=== PATIENT | male | born 1975 | race Caucasian/White ===

== ENCOUNTER 2020-04-29 08:05 | Observation (INO) | payer OTHER, SELFPAY ==
--- NOTE | ~2020-04-29 | MR_ITS ---
EXAMINATION: MR MRCP wo/w con/w 3D wo ind DATE: 04/30/2020 08:27 INDICATION: Jaundice. Anorexia. TECHNIQUE: Magnetic resonance imaging (MRI) of the abdomen was performed without and with 19 mL Multi vince intravenous contrast. Sequences included coronal T2-weighted SS-FSE, coronal T2-weighted FS SS- FSE, coronal T2-weighted FS FIESTA, axial T2-weighted FS FIESTA, axial T2-weighted FIESTA, sagittal T 2-weighted SS-FSE, axial T1-weighted dual-echo FSPGR, axial T2-weighted SS-FSE, axial T1-weighted LAV A, axial T2-weighted STIR FSE. Thick-slab T2-weighted FRFSE-XL images were obtained for magnetic reso nance cholangiopancreatography (MRCP). Rotating maximum intensity projection 3-D reconstructions of t he volumetric data were created by the technologist. Postcontrast sequences included a time course of axial T1-weighted LAVA. COMPARISON: CT dated 04/29/2020 FINDINGS: ABDOMEN MRI: Heart size is normal. No pericardial or pleural effusion. 3 mm T2 hyperintense nonenhanc ing cysts in the right hepatic lobe. No intra or extrahepatic biliary ductal dilation. Gallbladder, s pleen, pancreas, bilateral adrenal glands and kidneys are normal. There are several scattered colonic diverticula without adjacent inflammatory change to suggest diverticulitis. Small bowel and appendix are normal. Bladder is normal. No free intraperitoneal fluid. No pathologically enlarged abdominal o r pelvic lymphadenopathy. Bone marrow signal is normal throughout. ABDOMEN MRCP: Normal common bile duct which measures up to 3 mm in maximal diameter the mid duct tapering distally with no evident filling defects or mucosal irregularities. IMPRESSION: 1. Unremarkable MRI/MRCP with no cholelithiasis and no intra or extra hepatic biliary ductal dilation . Reviewed, dictated and finalized at location A. IMPRESSION: 1. Unremarkable MRI/MRCP with no cholelithiasis and no intra or extra hepatic b iliary ductal dilation.
--- NOTE | ~2020-04-29 | CT_ITS ---
EXAMINATION: CT abdomen pelvis w con DATE: 04/29/2020 08:48 INDICATION: Abdomen pain. Jaundice. TECHNIQUE: Computed tomography (CT) of the abdomen and pelvis was performed with 100 cc Omnipaque 350 intravenous contrast. The dose-length product was 315.31 mGy-cm. Automated exposure control and iter ative reconstruction technique were employed. COMPARISON: None. FINDINGS: Lung bases are unremarkable. Heart size normal. No significant pleural or pericardial effus ion. No significant vascular abnormality. No lymphadenopathy. The liver, spleen, pancreas, adrenal glands and kidneys are unremarkable. Gallbladder is contracted. Nonobstructive bowel gas pattern. Normal appendix. No abnormal pelvic masses or fluid collections. No free air or free fluid. IMPRESSION: 1. No acute abdominal abnormality. No findings to account for patient's symptoms. Reviewed, dictated and finalized at location B. IMPRESSION: 1. No acute abdominal abnormality. No findings to account for patient's symptom s.
[2020-04-29 08:09] VITALS: BP 136/103; PULSE 106; RESP 18; TEMP 36.8; O2SAT 99
--- NOTE | 2020-04-29 08:17 | ED.ABDPAIN ---
HPI - Abdominal Pain General Chief Complaint: Abdominal Pain Stated Complaint: abd pain/jaundice Time Seen by Provider: 04/29/20 08:17 History of Present Illness HPI narrative: Not feeling well for the past 9 days. Nausea, loss of appetite, abnormal bowel movements. Now feeling weak and and dehydrated. Noted to be jaundiced during triage. He reports that he takes tylenol PM sometimes at night, but no excessive use. Related Data Home Medications Medication Instructions Recorded Confirmed diphenhydramine-acetaminophen 2 tablet PO HS PRN 04/29/20 04/29/20 [Tylenol PM Extra Strength] meloxicam 7.5 mg PO DAILY PRN 04/29/20 04/29/20 Allergies Allergy/AdvReac Type Severity Reaction Status Date / Time No Known Allergies Allergy Verified 04/29/20 08:14 Review of Systems Review of Systems: All systems reviewed & are unremarkable except as noted in HPI and below Constitutional: Constitutional: Denies fever(s) Cardiovascular: Cardiovascular: Denies chest pain Gastrointestinal: Gastrointestinal: Denies vomiting Genitourinary: Genitourinary: Denies dysuria Neurologic: Denies focal weakness Endocrine: Endocrine: Denies polydipsia [facility] Family History Family History Father Pancreatic cancer Social History Social History Tobacco type: smokeless tobacco Smokeless tobacco user: chewing tobacco Alcohol intake: former Substance use type: other Other substance usage details: smokeless tobacco Spiritual care concerns: No Exam Const: General: no acute distress and alert Orientation/consciousness: patient oriented x3 HENMT: Head: normal to inspection Eyes: Conjunctivae: conjunctival abnormality bilateral conjunctival icterus Neck: Neck: normal visual inspection and no lymphadenopathy Chest: Chest palpation & inspection: no tenderness Resp: Effort & Inspection: normal respiratory effort Auscultation: clear to auscultation bilaterally, no rales, no rhonchi and no wheezes Cardio: Jugular venous distension: no JVD Rate: regular rate Rhythm: regular rhythm Heart sounds: no murmurs GI: Inspection: non-distended GI Palp: Yes Soft to palpation and No Tenderness to palpation present (GI) Skin: General skin exam: jaundice Neuro: General: patient oriented x3 and moves all extremities Speech: normal speech Extrem: General: no edema Psych: Appearance: well kempt Affect: normal affect Course Vital Signs Vital signs: Vital Signs Temperature 36.8 C 04/29/20 08:09 Pulse Rate 106 H 04/29/20 08:09 Respiratory Rate 18 04/29/20 08:09 Blood Pressure 136/103 H 04/29/20 08:09 Pulse Oximetry 99 04/29/20 08:09 Temperature 36.5 C 04/29/20 14:00 Pulse Rate 74 04/29/20 14:00 Respiratory Rate 16 04/29/20 14:00 Blood Pressure 126/69 04/29/20 14:00 Pulse Oximetry 100 04/29/20 14:00 MDM - Abdominal Pain MDM Narrative Medical decision making narrative: Patient discussed with GI doctor. They will see as a consult. Medical Records Attestation: I reviewed the patient's medical records. Lab Data Attestation: I reviewed the patient's lab results. Result diagrams: 04/29/20 08:17 04/29/20 08:35 Labs: Lab Results 04/29/20 04/29/20 04/29/20 Range/Units 08:16 08:16 08:17 WBC 7.9 (4.5-10.0) K/mm3 RBC 5.60 (4.6-6.20) M/mm3 Hgb 16.8 (14.0-18.0) g/dL Hct 49.6 (42.0-52.0) % MCV 88.6 (80-100) fl MCH 30.0 (26-34) pg MCHC 33.9 (32-36) g/dl RDW 13.6 (11.5-14.5) % Plt Count 268 (150-375) k/mm3 MPV 10.0 (7.4-10.4) fl Immature Gran % (Auto) 1.0 H (0-0.5) % Neut % (Auto) 59.4 (45.5-73.1) % Lymph % (Auto) 25.3 (18.3-44.2) % Tom[place]kins % (Auto) 8.8 H (2.6-8.5) % Eos % (Auto) 4.7 H (0-4.4) % Baso % (Auto) 0.8 (0.2-1.2) % Lymph # (Auto) 1.99 (0.9-3.2) K/mm3 Mon
[2020-04-29 08:34] LABS: Basophils Absolute Auto 0.1 K/mm3 (0.0-0.1); Basophils Percent Auto 0.8 % (0.2-1.2); Eosinophils Absolute Auto 0.4 K/mm3 (0-0.3); Eosinophils Percent Auto 4.7 % (0-4.4); Hematocrit 49.6 % (42.0-52.0); Hemoglobin 16.8 g/dL (14.0-18.0); Immature Granulocyte Absolute 0.08 K/mm3 (0.00-0.031); Lymphocytes Absolute Auto 1.99 K/mm3 (0.9-3.2); Lymphocytes Percent Auto 25.3 % (18.3-44.2); Mean Corpuscular HGB Conc 33.9 g/dl (32-36); Mean Corpuscular Volume 88.6 fl (80-100); Monocytes Absolute Auto 0.7 K/mm3 (0.1-0.6); Monocytes Percent Auto 8.8 % (2.6-8.5); Neutrophils Absolute Auto 4.7 K/mm3 (1.3-6.7); Neutrophils Percent Auto 59.4 % (45.5-73.1); Platelet Count Result 268 k/mm3 (150-375); Red Cell Distribution Width 13.6 % (11.5-14.5); White Blood Count 7.9 K/mm3 (4.5-10.0)
[2020-04-29 08:36] LABS: Estimated CRCL calculation 79 ml/min; Estimated Glomerular Filt Rate > 60
[2020-04-29 08:53] LABS: Albumin Level 4.9 g/dL (3.5-5.1); Alkaline Phosphatase 536 U/L (38-126); Aspartate Amino Transferase 368 U/L (17-59); Bilirubin,Total 13.5 mg/dL (0.2-1.3); Blood Urea Nitrogen 15 mg/dL (9-20); Carbon Dioxide 26 mmol/L (22-30); Chloride 98 mmol/L (98-107); Estimated CRCL calculation 79 ml/min; Estimated Glomerular Filt Rate > 60; Glucose 106 mg/dL (75-110); Lipase 103 U/L (23-300); Potassium 3.6 mmol/L (3.4-5.0); Sodium 137 mmol/L (137-145)
[2020-04-29] MEDS: SODIUM CHLORIDE 0.9% IV 1,000 ML 999 ML IV CONT (08:55)
[2020-04-29 09:01] LABS: Alanine Aminotransferase 985 U/L (4-50)
[2020-04-29 09:02] LABS: Albumin Level 4.8 g/dL (3.5-5.1); Alkaline Phosphatase 533 U/L (38-126); Aspartate Amino Transferase 368 U/L (17-59); Bilirubin,Total 13.6 mg/dL (0.2-1.3)
[2020-04-29 09:03] LABS: Alanine Aminotransferase 985 U/L (4-50)
[2020-04-29 09:37] LABS: Appearance Urine Clear (Clear); Bilirubin Urine 3+ (Negative); Blood Urine Negative (Negative); Color Urine Yellow (Yellow); Glucose Urine UA Negative (Negative); Ketones Urine 1+ mg/dL (Negative); Leukocyte Esterase Ur Negative LEU/UL (Negative); Nitrate Urine Negative (Negative); Protein Urine Trace mg/dL (Negative); Urobilinogen Urine 0.2 mg/dL (<2.0)
[2020-04-29 09:52] LABS: Add Urine Microscopic? YES; RBC Urine 0-2 /hpf (0-2); WBC Urine 0-3 /hpf
[2020-04-29 09:52] LABS: INR 0.9; Prothrombin Time 11.5 Seconds (11.1-14.7)
[2020-04-29 09:53] LABS: Bacteria Urine Trace /hpf; Mucus Urine Rare /lpf
[2020-04-29 11:23] LABS: Hepatitis B Surface Antigen Negative (Negative)
[2020-04-29 11:26] VITALS: BP 113/72; PULSE 75; RESP 16; O2SAT 98
[2020-04-29 11:33] LABS: HAV RESULT Negative (Negative); Hepatitis B Core IgM Result Negative (Negative)
[2020-04-29 11:41] LABS: Hepatitis C Virus Antibody Negative (Negative)
[2020-04-29 13:32] VITALS: BP 111/77; PULSE 87; RESP 16; TEMP 36.6; O2SAT 97
[2020-04-29 13:49] LABS: Acetaminophen < 10 ug/mL (10-30)
--- NOTE | 2020-04-29 13:52 | PC.NURSE ---
This patient, Samm Pan, was admitted to Medical Room 341-01. Patient/family oriented to hospital policies and general routines including ID bracelet, bed and alarms, visiting hours, pain management, procedures, bathroom and other care routines, personal items, smoking policy, room service/diet, and visiting hours. Valuables list has been completed. Information on how to activate the Rapid Response Team has been discussed. Patient/Family are encouraged to report perceived risks to care and to ask questions if they do not understand what they are told or what they should do.
[2020-04-29 14:00] VITALS: BP 126/69; PULSE 74; RESP 16; TEMP 36.5; O2SAT 100
[2020-04-29 14:10] VITALS: BMI 23.8
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
[2020-04-29] MEDS: LACTATED RINGERS 1,000 ML 125 ML IV CONT (14:37)
[2020-04-29] MEDS: NICOTINE (*PBKC) 7 MG PATCH 1 PATCH TRANSDERM (15:49)
--- NOTE | 2020-04-29 17:34 | WPDGICN ---
Assessment and Plan Assessment and plan (1) Acute hepatitis: Code(s): B17.9 - Acute viral hepatitis, unspecified Status: Acute Assessment and Plan: 10 days of vague symptoms but now has jaundice with hepatitis. HAV, HBV negative. I still wonder if could be viral- will order serology for EBV, CMV, HIV, herpes, also get HBV DNA, davida disease and autoimmune hepatitis he has not been using more than 1g acetaminophen daily however given clinical presentation I will start empirically iv mucomyst monitor liver enzymes denies etoh use synthetic function is normal (2) Jaundice: Code(s): R17 - Unspecified jaundice Status: Acute Assessment and Plan: will get also MRCP to assess pancreas and biliary system (3) Anorexia: Code(s): R63.0 - Anorexia Status: Acute Assessment and Plan: he may need egd in 1-2 days based on clinical course GI Consult Note Consult date/time: 04/29/20 17:34 Reason for consult: jaundice, malaise HPI: Samm Pan is a 44 year old male who is healthy and history of shoulder surgery about a month ago for which took narcotics for only a week discontinued about 3 weeks ago, he has been using 2 tylenol PM for sleeping since then but no other forms of acetaminophen, otherwise denies etoh use, history of liver disease. About 10 days started feeling lousy with lack of appetite, he was just not being himself and more tired than usual, also dyspepsia with reflux symptoms, even took tums and antacids. Noted light stools and just recently eyes turned yellow therefore he came to ER. CT scan abdomen was unremarkable. Had bilirubin 13, ast 360 and alt 900, AP 500, inr 0.9, lipase 100. Hepatitis panel negative. He had chills but no fever, denies sick contacts, no recent trips. Never had scopes. Father had pancreatic cancer. Review of Systems Constitutional: Constitutional: Reports chills, Reports fatigue, Denies headache(s), Reports lethargy and Reports weakness Eyes: Eyes: Denies blurry vision ENT: Reports Normal hearing present, Denies headache(s) and Denies neck pain Cardiovascular: Cardiovascular: Denies chest pain and Denies dyspnea Respiratory: Respiratory: Denies dyspnea Gastrointestinal: Gastrointestinal: Reports heartburn Genitourinary: Genitourinary: Denies dysuria Musculoskeletal: Musculoskeletal: Denies neck pain Integumentary/Breasts: Skin/Breast: Denies dry skin Neurologic: Reports Normal hearing present, Denies headache(s) and Denies weakness Psychiatric: Psychiatric: Denies anxiety Endocrine: Endocrine: Denies change in body appearance Hematologic/Lymphatic: Hematologic/Lymphatic: Denies easy bleeding Allergic/Immunologic: Allergic/Immunologic: Denies urticaria PMFSH Family History Family History Father Pancreatic cancer Social History Social History Tobacco type: smokeless tobacco Smokeless tobacco user: chewing tobacco Alcohol intake: former Substance use type: other Other substance usage details: smokeless tobacco Spiritual care concerns: No Meds Home Medications and Allergies Home Medications Medication Instructions Recorded Confirmed Type diphenhydramine-acetaminophen 2 tablet PO HS PRN 04/29/20 04/29/20 History [Tylenol PM Extra Strength] meloxicam 7.5 mg PO DAILY PRN 04/29/20 04/29/20 History Allergies Allergy/AdvReac Type Severity Reaction Status Date / Time No Known Allergies Allergy Verified 04/29/20 08:14 Vital Signs Vital Signs - 24 hr 04/29/20 08:09 04/29/20 11:26 04/29/20 13:32 Temperature 98.3 F 98 F Pulse Rate 106 H 75 87 Respiratory Rate 18 16 16 Blood Pressure 136/103 H 113/72 111/77 Pulse Oximetry 99 98 97 04/29/20 14:00 Temperature 97.7 F Pulse Rate 74 Respiratory Rate 16 Blood Pressure 126/69 Pulse Oximetry 100 Exam Const: General: co
[2020-04-29 20:00] VITALS: PULSE 94; RESP 14; O2SAT 100
[2020-04-29 20:01] VITALS: BP 130/77; PULSE 94; RESP 14; TEMP 36.9; O2SAT 100
[2020-04-30 06:00] VITALS: BP 126/71; PULSE 67; RESP 18; TEMP 36.4; O2SAT 100
[2020-04-30 06:05] LABS: Basophils Absolute Auto 0.1 K/mm3 (0.0-0.1); Basophils Percent Auto 0.5 % (0.2-1.2); Eosinophils Absolute Auto 0.2 K/mm3 (0-0.3); Eosinophils Percent Auto 1.4 % (0-4.4); Hematocrit 42.9 % (42.0-52.0); Hemoglobin 15.1 g/dL (14.0-18.0); Immature Granulocyte Absolute 0.12 K/mm3 (0.00-0.031); Lymphocytes Absolute Auto 1.49 K/mm3 (0.9-3.2); Lymphocytes Percent Auto 12.8 % (18.3-44.2); Mean Corpuscular HGB Conc 35.2 g/dl (32-36); Mean Corpuscular Hemoglobin 29.7 pg (26-34); Mean Corpuscular Volume 84.3 fl (80-100); Mean Platelet Volume 9.5 fl (7.4-10.4); Monocytes Percent Auto 8.2 % (2.6-8.5); Neutrophils Absolute Auto 8.9 K/mm3 (1.3-6.7); Neutrophils Percent Auto 76.1 % (45.5-73.1); Platelet Count Result 248 k/mm3 (150-375); Red Blood Count 5.09 M/mm3 (4.6-6.20); Red Cell Distribution Width 12.9 % (11.5-14.5); White Blood Count 11.6 K/mm3 (4.5-10.0)
[2020-04-30 06:10] LABS: INR 1.1; Prothrombin Time 13.4 Seconds (11.1-14.7)
[2020-04-30 06:11] LABS: Partial Thromboplastin Time 28.9 SECONDS (22.3-36.8)
--- NOTE | 2020-04-30 06:12 | PC.NURSE ---
intake before mid noc
[2020-04-30 06:26] LABS: Alanine Aminotransferase 721 U/L (4-50); Albumin Level 4.5 g/dL (3.5-5.1); Alkaline Phosphatase 480 U/L (38-126); Aspartate Amino Transferase 181 U/L (17-59); Bilirubin,Total 12.8 mg/dL (0.2-1.3); Blood Urea Nitrogen 10 mg/dL (9-20); Calcium 9.8 mg/dL (8.4-10.2); Carbon Dioxide 21 mmol/L (22-30); Chloride 103 mmol/L (98-107); Creatine Kinase 39 U/L (55-170); Estimated CRCL calculation 111 ml/min; Estimated Glomerular Filt Rate > 60; Glucose 141 mg/dL (75-110); Phosphorus 2.6 mg/dL (2.5-4.5); Potassium 3.5 mmol/L (3.4-5.0); Sodium 137 mmol/L (137-145)
[2020-04-30 07:05] LABS: HIV 1/2 Ab P24 Ag Result Negative (Negative)
[2020-04-30 13:31] LABS: Immunoglobulin A 138 mg/dL (70-400); Immunoglobulin G 603 mg/dL (700-1600); Immunoglobulin M 123 mg/dL (40-230)
[2020-04-30 14:00] VITALS: BP 127/66; PULSE 99; RESP 16; TEMP 36.5; O2SAT 100
--- NOTE | 2020-04-30 15:37 | PM.IMPN ---
Progress Note: A&P Assessment and Plan (1) Acute hepatitis: Code(s): B17.9 - Acute viral hepatitis, unspecified Status: Acute Assessment and Plan: Etiology not clear at this time, with negative viral hepatitis panel. His synthetic function is normal with normal CBC. He has been taking no more than 1 gram of Tylenol in the form of Tylenol p.m. and acetaminophen level is undetectable. Multiple labs have been ordered for evaluation to rule out other viral etiologies and autoimmune hepatitis. Supportive care for now with IV fluid rehydration and antiemetics as needed. MRCP today negative (2) Jaundice: Code(s): R17 - Unspecified jaundice Status: Acute Assessment and Plan: CT of the abdomen and pelvis is unremarkable, but given his father's history of pancreatitis in his 50s, MRCP done today and was negative (3) Anorexia: Code(s): R63.0 - Anorexia Status: Acute Assessment and Plan: Likely due to acute hepatitis, but he also complains of GERD symptoms. Hold meloxicam as that could be causing some GI upset. Subjective Date/time seen: 04/30/20 15:37 Interval history: Date of visit 04/30. 44-year-old admitted with acute hepatitis anorexia. Feels slightly better this a.m. after hydration was able to eat fairly well this morning. No pain and has had no vomiting at home. Exam Narrative: Exam Narrative: Blood pressure 126/56 pulse is 94 saturating 100% room air afebrile General: Well-developed male, mildly ill in appearance, HEENT: Pupils reactive. Conjunctiva are icteric bilaterally. Neck: Supple. Respiratory: Lungs are clear to auscultation bilaterally. Cardiovascular: Regular rate and rhythm with S1-S2. Gastrointestinal: Abdomen is soft, nontender, and nondistended with positive bowel sounds. No organomegaly. Skin: Warm, dry, and jaundiced. Extremities: No edema. Radial and pedal pulses intact. Neurological: Alert. Cranial nerves 2-12 are grossly intact. No gross focal deficits to casual conversation. Psychiatric: Pleasant and cooperative with normal mood and affect. Judgment and insight intact. Objective Data Vital Signs Vital Signs: Vital Signs - 24 hr 04/29/20 20:00 04/29/20 20:01 04/30/20 06:00 Temperature 36.9 C 36.4 C Pulse Rate 94 94 67 Respiratory Rate 14 14 18 Blood Pressure 130/77 126/71 Pulse Oximetry 100 100 100 04/30/20 14:00 Temperature 36.5 C Pulse Rate 99 Respiratory Rate 16 Blood Pressure 127/66 Pulse Oximetry 100 Intake/Output Intake/Output: Intake & Output 04/27/20 04/28/20 04/29/20 04/30/20 23:59 23:59 23:59 23:59 Intake Total 2095.75 917.25 Output Total 1125 Balance 2095.75 -207.75 Meds/Results Medications: Active Medications Generic Name Dose Route Start Last Admin Trade Name Freq PRN Reason Stop Dose Admin Lactated Ringer's 1,000 mls @ 100 mls/hr 04/29/20 12:55 04/29/20 18:23 Lr - Lactated Ringers Iv IV CONT 0 mls/hr .Q10H PURNIMA Infusion Nicotine 1 patch 04/29/20 14:49 04/30/20 08:52 Nicoderm Cq 7 Mg TRANSDERM Not Given [facility] Radiology Results: ITS Impressions Abdomen/Pelvis CT 04/29/20 08:56 IMPRESSION: 1. No acute abdominal abnormality. No findings to account for patient's symptoms. MRCP 04/30/20 08:49 IMPRESSION: 1. Unremarkable MRI/MRCP with no cholelithiasis and no intra or extra hepatic biliary ductal dilation. Labs Labs: Laboratory Results - last 24 hr 04/30/20 04/30/20 04/30/20 05:43 05:45 05:45 WBC 11.6 H RBC 5.09 Hgb 15.1 Hct 42.9 MCV 84.3 MCH 29.7 MCHC 35.2 RDW 12.9 Plt Count 248 MPV 9.5 Immature Gran % (Auto) 1.0 H Neut % (Auto) 76.1 H Lymph % (Auto) 12.8 L Foard % (Auto) 8.2 Eos % (Auto) 1.4 Baso % (Auto)
--- NOTE | 2020-04-30 16:54 | WPDGIPROGNO ---
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 Denies use etoh, no antibiotics, no herbals. (2) Jaundice: Code(s): R17 - Unspecified jaundice Status: Acute Assessment and Plan: monitor labs (3) Anorexia: Code(s): R63.0 - Anorexia Status: Acute Subjective Date/time seen: 04/30/20 16:54 Interval history: no new events, he tolerating diet, no abdominal pain. Some loose stools today after getting iv acetadote Review of Systems Review of Systems: All systems reviewed & are unremarkable except as noted in HPI and below Exam Const: General: comfortable and no acute distress HENMT: General nose exam: Normal nares present Eyes: Sclera: scleral abnormality (icteric) Neck: Neck: no JVD Resp: Auscultation: clear to auscultation bilaterally Cardio: Rate: regular rate Rhythm: regular rhythm GI: Inspection: non-distended GI Palp: Yes Soft to palpation Auscultation: normal bowel sounds Skin: General skin exam: jaundice Neuro: General: gait normal Speech: normal speech Extrem: General: normal to inspection Psych: Mental Status: mental status grossly normal Objective Data Vital Signs Vital Signs: Vital Signs - 24 hr 04/29/20 20:00 04/29/20 20:01 04/30/20 06:00 Temperature 98.4 F 97.6 F Pulse Rate 94 94 67 Respiratory Rate 14 14 18 Blood Pressure 130/77 126/71 Pulse Oximetry 100 100 100 04/30/20 14:00 Temperature 97.7 F Pulse Rate 99 Respiratory Rate 16 Blood Pressure 127/66 Pulse Oximetry 100 Intake/Output Intake/Output: Intake & Output 04/27/20 04/28/20 04/29/20 04/30/20 23:59 23:59 23:59 23:59 Intake Total 2094.75 917.25 Output Total 1125 Balance 2095.75 -207.75 Meds/Results Medications: Active Medications Generic Name Dose Route Start Last Admin Trade Name Bucky PRN Reason Stop Dose Admin Lactated Ringer's 1,000 mls @ 100 mls/hr 04/29/20 12:55 04/29/20 18:23 Lr - Lactated Ringers Iv IV CONT 0 mls/hr .Q10H PURNIMA Infusion Nicotine 1 patch 04/29/20 14:49 04/30/20 08:52 Nicoderm Cq 7 Mg TRANSDERM Not [facility] Results: ITS Impressions Abdomen/Pelvis CT 04/29/20 08:56 IMPRESSION: 1. No acute abdominal abnormality. No findings to account for patient's symptoms. MRCP 04/30/20 08:49 IMPRESSION: 1. Unremarkable MRI/MRCP with no cholelithiasis and no intra or extra hepatic biliary ductal dilation. Labs Labs: Laboratory Results - last 24 hr 04/30/20 04/30/20 04/30/20 05:43 05:45 05:45 WBC 11.6 H RBC 5.09 Hgb 15.1 Hct 42.9 MCV 84.3 MCH 29.7 MCHC 35.2 RDW 12.9 Plt Count 248 MPV 9.5 Immature Gran % (Auto) 1.0 H Neut % (Auto) 76.1 H Lymph % (Auto) 12.8 L Lander % (Auto) 8.2 Eos % (Auto) 1.4 Baso % (Auto) 0.5 Lymph # (Auto) 1.49 Lander # (Auto) 1.0 H Eos # (Auto) 0.2 Baso # (Auto) 0.1 Abs Immat Gran (auto) 0.12 H Absolute Neuts (auto) 8.9 H Absolute Nucleated RBC 0.0 Nucleated RBC % 0.0 PT 13.4 INR 1.1 APTT 28.9 Sodium Potassium Chloride Carbon Dioxide BUN Creatinine Estim Creat Clear Calc Estimated GFR Glucose Calcium Phosphorus Magnesium Total Bilirubin AST ALT Alkaline Phosphatase Total Creatine Kinase Total Protein Albumin TSH (Reflex) 1.590 IgG IgA IgM HIV 1&2 Ab/P24 Ag 4thGn 04/30/20 04/30/20 04/30/20 05:45 05:45 13:00 WBC RBC Hgb Hct MCV MCH MCHC RDW Plt Count
[2020-04-30] MEDS: LACTATED RINGERS 1,000 ML 100 ML IV CONT (17:41)
[2020-04-30 20:01] VITALS: BP 131/73; PULSE 93; RESP 14; TEMP 36.8; O2SAT 100
[2020-04-30] MEDS: diphenhydrAMINE HCl CAP 25 MG CAPSULE 50 MG PO (21:17)
[2020-05-01] MEDS: LACTATED RINGERS 1,000 ML 100 ML IV CONT (03:46)
[2020-05-01 05:52] VITALS: BP 121/77; PULSE 68; RESP 16; TEMP 36.5; O2SAT 100
[2020-05-01 06:01] LABS: Basophils Absolute Auto 0.1 K/mm3 (0.0-0.1); Basophils Percent Auto 0.8 % (0.2-1.2); Eosinophils Absolute Auto 0.3 K/mm3 (0-0.3); Eosinophils Percent Auto 3.8 % (0-4.4); Hematocrit 39.5 % (42.0-52.0); Hemoglobin 13.4 g/dL (14.0-18.0); Immature Granulocyte Absolute 0.11 K/mm3 (0.00-0.031); Immature Granulocyte Percent A 1.4 % (0-0.5); Lymphocytes Absolute Auto 1.83 K/mm3 (0.9-3.2); Lymphocytes Percent Auto 23.9 % (18.3-44.2); Mean Corpuscular HGB Conc 33.9 g/dl (32-36); Mean Corpuscular Volume 88.6 fl (80-100); Mean Platelet Volume 10.1 fl (7.4-10.4); Monocytes Absolute Auto 0.9 K/mm3 (0.1-0.6); Monocytes Percent Auto 11.7 % (2.6-8.5); Neutrophils Absolute Auto 4.5 K/mm3 (1.3-6.7); Neutrophils Percent Auto 58.4 % (45.5-73.1); Platelet Count Result 237 k/mm3 (150-375); Red Blood Count 4.46 M/mm3 (4.6-6.20); Red Cell Distribution Width 14.1 % (11.5-14.5); White Blood Count 7.7 K/mm3 (4.5-10.0)
[2020-05-01 06:11] LABS: INR 1.1; Prothrombin Time 13.4 Seconds (11.1-14.7)
[2020-05-01 06:31] LABS: Alanine Aminotransferase 539 U/L (4-50); Albumin Level 3.5 g/dL (3.5-5.1); Alkaline Phosphatase 350 U/L (38-126); Aspartate Amino Transferase 117 U/L (17-59); Bilirubin,Total 6.1 mg/dL (0.2-1.3); Blood Urea Nitrogen 10 mg/dL (9-20); Carbon Dioxide 26 mmol/L (22-30); Chloride 107 mmol/L (98-107); Estimated CRCL calculation 98 ml/min; Estimated Glomerular Filt Rate > 60; Glucose 111 mg/dL (75-110); Potassium 3.6 mmol/L (3.4-5.0); Sodium 139 mmol/L (137-145)
[2020-05-01 08:34] VITALS: PULSE 72; RESP 16; O2SAT 100
[2020-05-02 15:39] LABS: EBV Nuclear Ab Interpretation Past; EBV Virus Capsid Ag IgM Ab <36.00 U/mL (<36.00)
[2020-05-02 17:20] LABS: Herpes Simplex Type 1 DNA PCR Not Detected (Not Detected); Herpes Simplex Type 2 DNA PCR Not Detected (Not Detected)
[2020-05-03 10:53] LABS: Ceruloplasmin 40 mg/dL (18-36)
[2020-05-04 15:52] LABS: CMV IgM Antibody <30.00 AU/mL (<30.00)
[2020-05-05 13:43] LABS: Mitochondrial (M2) Ab (IgG) <=20.0 U (<=20.0)
[2020-05-06 20:44] LABS: CMV DNA Quant PCR IU/mL <200 IU/mL (<200); Cytomegalovirus DNA Quant PCR <2.30 log IU/mL (<2.30); Cytomegalovirus DNA Source Serum
[2020-05-07 17:04] LABS: Hepatitis B DNA PCR <1.00 Log IU/mL; Hepatitis B DNA PCR <10 IU/mL
--- NOTE | 2020-05-08 13:44 | PM.DS ---
DS: Admitting Diagnosis Admitting Diagnosis Admitting Diagnosis: Unspecified abdominal pain DS: Discharge Diagnosis Discharge Diagnosis (1) Acute hepatitis: Code(s): B17.9 - Acute viral hepatitis, unspecified Status: Acute Assessment and Plan: Etiology not clear at this time, with negative viral hepatitis panel. l with normal CBC. He has been taking no more than 1 gram of Tylenol in the form of Tylenol p.m. and acetaminophen level is undetectable. Multiple labs have been ordered for evaluation to rule out other viral etiologies and autoimmune hepatitis. Supportive care for now with IV fluid rehydration and antiemetics and at discharge bili room had dropped from 12.8 to 6.1 another transaminases were falling. He was taking a regular diet without any nausea vomiting and was afebrile MRCP negative serum ceruloplasmin was borderline elevated at 40 and will be followed up with with gastroenterologists (2) Jaundice: Code(s): R17 - Unspecified jaundice Status: Acute Assessment and Plan: CT of the abdomen and pelvis is unremarkable, , MRCP done and was negative and repeat CMP drawn within 10days (3) Anorexia: Code(s): R63.0 - Anorexia Status: Acute Assessment and Plan: Likely due to acute hepatitis, but he also complains of GERD symptoms. Held meloxicam as that could be causing some GI upset. DS: Summary Hospital Course Hospital Course: Admitted with anorexia and found to have elevated LFTs and bilirubin of 12.8. Gently hydrated and follow-up bilirubin within 48 hours and is down to 6.[address] of the abdomen and MRCP. Hepatitis AB and C profile were negative and patient was feeling much better eating a normal diet by the time of discharge. Serum ceruloplasmin was slightly elevated at 40 and this will be follow-up with gastroenterology and primary repeat liver profile within 10 days he was presently off work after recent shoulder surgery and will continue off work to present time Time Spent with Patient Time attestation: Total time spent providing and/or coordinating discharge services: 35 minutes Exam Narrative: Exam Narrative: Condition on discharge blood pressure 122/76 pulse 68 afebrile lungs clear CV regular rate rhythm abdomen soft nontender bowel sounds normal active extremities without edema and still evidence of jaundice DS: Data Data Completed and Pending Labs on day of discharge: Labs from last 24 hours 04/30/20 13:00 HepB DNA PCR UltraQnt Units/mL <10 Hep B DNA Qnt log IU/mL <1.00 Discharge Plan Discharge Attending physician on discharge: Fawad Jordan Consulting providers: Kalin Cisneros ; Darrian Velásquez ; Lopez Schumacher ; Juan Holland ; Kaity Alvarado Discharging Clinician: Fawad Jordan Patient Disposition: Home, Self-Care Activity: as tolerated Diet: regular Patient Instructions: Antibiotic Form, Pain Management (DC), Fatigue (DC), Jaundice (DC), MRCP (Magnetic Resonance Cholangiopancreatography) (DC) Stand Alone Forms: General Discharge Information Follow-up/Referrals: Darrian Velásquez MD [Physician] - 2 Weeks Discharge Medications: Discontinued meloxicam 7.5 mg tablet 7.5 mg PO DAILY PRN (Reason: Inflammation) RF: 0 diphenhydramine-acetaminophen [Tylenol PM Extra Strength] 25-500 mg Tablet 2 tablet PO HS PRN (Reason: Insomnia) RF: 0 Other Ambulatory Orders: Comprehensive Metabolic Panel (Routine) Timeframe: [id number] Location: Determined by Patient Ordered By: Fawad Jordan Date of admission: 04/29/20 12:53 Primary Care Provider: PHYSICIAN,TEACHER AIDE Admitting Provider: Catia Hennessy Discharge Date/Time: 05/01/20 10:40 Attending physician on admissio
== END 2020-05-01 10:40 | disposition home or self-care (01) ==
LOC: ANHED 12:59 → ANH3MED 13:14
PROVIDERS: Internal Medicine Gastroenterology; Physician Assistant; Admitting Provider Family Medicine; Emergency Provider Emergency Medicine; Visit Provider Internal Medicine
DX: B17.9 Acute viral hepatitis, unspecified (principal); R17 Unspecified jaundice; R63.0 Anorexia; F17.220 Nicotine dependence, chewing tobacco, uncomplicated; Z79.899 Other long term (current) drug therapy
CPT/HCPCS: 36415; 74177; 74183; 76376; 80053; 80074; 80076; 80307; 81001; 82248; 82390; 82550; 82784; 83520; 83690; 83735; 84100; 84443; 85025; 85610; 85730; 86038; 86645; 86664; 86665; 86703; 86790; 87497; 87517; 87529; 96360; 96361; 96365; 96366; 99285; A9270; A9577; G0378; G0432; J0132; J7030; J7060; J7070; J7120; Q9967